=== PATIENT | female | born 1980 | race Caucasian/White ===

== ENCOUNTER 2018-07-18 06:23 | Emergency (ER) | payer MEDICAID ==
[~2018-07-18] VITALS: Ht 160 cm; Wt 69.2 kg
[2018-07-18 06:31] VITALS: BP 133/65; PULSE 81; RESP 18; Ht 160 cm; Wt 69.2 kg
[2018-07-18] MEDS ORDERED: KETOROLAC 30 MG INJ IM STA (06:41)
--- NOTE | 2018-07-18 07:00 | ERD ---
ER Documentation Chief Complaint Chief Complaint lower back pain radiating to left arm w/ fever HPI 37-year-old female is here complaining of left-sided lower back pain that radiates up to her left flank, left shoulder, and left upper extremity. This is been going on for 5 days. She has been taking anti-inflammatories at home which do not help. She also states she has had chills and fevers. She did not take any antipyretics prior to coming. No nausea vomiting or diarrhea. No abdominal pain. No dysuria hematuria or frequency. ROS All systems reviewed and are negative except as per history of present illness. Medications Home Meds Active Scripts Cyclobenzaprine Hcl* (Cyclobenzaprine Hcl*) 10 Mg Tablet, 10 MG PO Q8 PRN for MUSCLE SPASMS, #20 TAB Prov:LAURO SINGH PA-C 07/18/18 Ibuprofen* (Motrin*) 800 Mg Tab, 800 MG PO Q6, #30 TAB Prov:LAURO SINGH PA-C 07/18/18 Allergies Allergies: Coded Allergies: No Known Allergy (Verified Adverse Reaction, Unknown, 09/21/07) PMhx/Soc Medical and Surgical Hx: pt denies Medical Hx, pt denies Surgical Hx Hx Alcohol Use: No Hx Substance Use: No Hx Tobacco Use: No Smoking Status: Never smoker FmHx Family History: No diabetes Physical Exam Vitals Vital Signs Date Temp Pulse Resp B/P (MAP) Pulse Ox O2 O2 Flow FiO2 Time Delivery Rate 07/18/18 98.6 81 18 133/65 99 06:31 (87) Physical Exam INITIAL VITAL SIGNS: Reviewed by me GENERAL: Awake, alert and oriented x 4, well appearing, nontoxic, speaking in full sentences. No acute distress HEAD: Atraumatic NECK: Supple. No masses. Full range of motion. No meningismus. No midline tenderness. EYES: EOMI. PERRL. RESPIRATORY: Clear to auscultation bilaterally. Symmetric chest wall rise. No wheezing or rales. No accessory muscle use. CV: Regular rate and rhythm. No murmurs, rubs, or gallops. ABDOMEN: Soft, non-distended. Nontender. Negative [place]. Negative [place] point tenderness. No CVA tenderness bilaterally. No guarding. No rebound. : Deffered. EXTREMITIES: No clubbing or cyanosis. No edema. Moving all extremities normally. Back Exam: Compartments: Soft Motor: Normal flexion and extension of bilateral hip/knee/ankle/foot Sensation: Intact to light touch throughout Bones: No midline TTP Results 24 hrs Laboratory Tests Test 07/18/18 06:55 07/18/18 07:02 POC Beta HCG, Qualitative NEGATIVE Bedside Urine pH (LAB) 6.0 Bedside Urine Protein (LAB) Negative Bedside Urine Glucose (UA) Negative Bedside Urine Ketones (LAB) Negative Bedside Urine Blood Trace-intact Bedside Urine Nitrite (LAB) Negative Bedside Urine Leukocyte Esterase (L Negative Current Medications Medications Dose Sig/Salena Start Time Status Last (Trade) Ordered Route PRN Stop Time Admin Dose Reason Admin Ketorolac 30 mg ONCE STAT 07/18/18 DC 07/18/18 Tromethamine IM 06:41 07/18/18 06:58 (Toradol) 06:43 Procedures/MDM The differential diagnosis includes but is not limited to muscle strain, lig ament strain, contusion, arthritis, discogenetic disease, non-musculoskeletal, cauda equina syndrome, cord compression, abscess and others. Patient states she has had fever although at this time she is afebrile and she did not take any antipyretics prior to coming. She is well-appearing in no distress. Her pain is most likely musculoskeletal versus possible urinary tract infection. I doubt she has a kidney stone or pyelonephritis or any other emergent etiology of her symptoms. She was given Toradol. Urine is negative. Urine dip is negative. Patient is discharged with ibuprofen and Flexeril. Patient counseled regarding my diagnostic impression and care plan. Prior to discharge all questions answered. Pt agrees with treatment plan and understands strict return precautions. Pt is instructed to follow up with primary care provider within 24- 48 hours. Precautionary instructions provided including instructions to return to the ER if not improving or for any worsening or changing symptoms or genevieve rns. Departure Diagnosis: Primary Impression: Back pain Condition: Stable LAURO SINGH PA-C Jul 18, 2018 07:00
[2018-07-18] MEDS ORDERED: CYCL10TA7 PO (07:04)
[2018-07-18] MEDS ORDERED: IBUP800T48 PO (07:04)
== END 2018-07-18 07:13 | disposition home or self-care (01) ==
LOC: FTE 06:23
DX: M54.5 Low back pain (principal)
CPT/HCPCS: 81003; 81025; 96372; J1885; Z7502